=== PATIENT | female | born 1990 | race Caucasian/White ===

== ENCOUNTER 2022-07-03 13:21 | Inpatient (IN) | payer MEDICAID ==
[~2022-07-03] VITALS: Ht 157.5 cm; Wt 83.0 kg
[2022-07-03] MEDS ORDERED: LR 500 ML IV ONE (16:15)
[2022-07-03] MEDS ORDERED: OXYTOCIN/0.9 % SODIUM CHLORIDE 1,000 ML IV SCH (16:15)
[2022-07-03] MEDS ORDERED: DINOPROSTONE 10 MG SUPP VG ONE (16:15)
[2022-07-03] MEDS ORDERED: TERBUTALINE SULFATE 1 MG/ML VIAL SUBCUT ONE (16:15)
[2022-07-03 18:40] LABS: BASOPHILS % (AUTO) 0.4 % (0.0-2.0); EOSINOPHILS % (AUTO) 0.1 % (0.0-4.0); HEMATOCRIT 36.2 % (36-48); HEMOGLOBIN 12.9 g/dL (12.0-16.0); LYMPHOCYTES # (AUTO) 0.6 K/uL (1.0-5.5); LYMPHOCYTES % (AUTO) 6.5 % (20.5-51.5); MEAN CORPUSCULAR HEMOGLOBIN 31 pg (27-31); MEAN CORPUSCULAR HGB CONC 36 % (32-36); MEAN CORPUSCULAR VOLUME 88 fL (79.0-98.0); MONOCYTES # (AUTO) 0.6 K/uL (0.0-1.0); MONOCYTES % (AUTO) 6.4 % (1.7-9.3); NEUTROPHILS # (AUTO) 8.4 K/uL (1.8-7.7); NEUTROPHILS % (AUTO) 86.6 % (40.0-70.0); PLATELET COUNT (AUTO) 189 K/uL (130-430); RED BLOOD CELL COUNT(AUTO) 4.11 MIL/uL (4.2-6.2); RED CELL DISTRIBUTION WIDTH 13.7 % (9.0-15.0); WHITE BLOOD COUNT (AUTO) 9.7 K/uL (4.8-10.8)
[2022-07-03] MEDS: LR 1,000 ML IV SCH (21:11)
[2022-07-03 23:18] VITALS: BP_SYST 111
[2022-07-04] MEDS: LR 1,000 ML IV SCH ×3 (00:20→23:25)
[2022-07-04] MEDS ORDERED: NALBUPHINE HCL 10 MG/ML AMP IVP PRN (02:30)
[2022-07-04] MEDS ORDERED: NALOXONE HCL 0.4 MG/ML AMP (NARCAN) IVP PRN (02:45)
[2022-07-04] MEDS: MORPHINE SULFATE 10 MG/ML VIAL IVP PRN ×2 (02:48→06:46)
[2022-07-04] MEDS ORDERED: ROPIVACAINE HCL/PF 0.2% 200 ML ONE (10:49)
[2022-07-04] MEDS ORDERED: fentaNYL CITRATE/PF 100 MCG/2 ML AMP ONE (10:49)
[2022-07-04] MEDS ORDERED: ePHEDrine sulfate 50 MG/ML VIAL IVP PRN (11:30)
[2022-07-04] MEDS ORDERED: LR 500 ML IV ONE (11:30)
[2022-07-04] MEDS ORDERED: ACETAMINOPHEN 325 MG TABLET PO ONE (19:30)
[2022-07-04] MEDS ORDERED: CLINDAMYCIN 900 MG in D5W 100 ML IV ONE (19:30)
[2022-07-04] MEDS ORDERED: GENTAMICIN 80 mg/50 mL NS 50 ML IV ONE (19:30)
[2022-07-04] MEDS ORDERED: ACETAMINOPHEN 500 MG TABLET ONE (19:37)
[2022-07-04] MEDS ORDERED: AMPICILLIN SODIUM 2 GM VIAL ONE (19:39)
[2022-07-04] MEDS ORDERED: AMPICILLIN SODIUM 2 GM in NS 100 ML IV ONE (20:00)
[2022-07-04] MEDS ORDERED: NALOXONE HCL 0.4 MG/ML AMP (NARCAN) ONE (21:29)
[2022-07-04] MEDS ORDERED: LIGHT MINERAL OIL 10 ML VIAL MC ONE (21:29)
[2022-07-04] MEDS ORDERED: LIDOCAINE PF 1% 30ML(POUR BTL) INJ ONE (21:29)
[2022-07-05] MEDS ORDERED: OXYTOCIN/0.9 % SODIUM CHLORIDE 1,000 ML IV ONE (04:30)
[2022-07-05] MEDS ORDERED: OXYTOCIN/0.9 % SODIUM CHLORIDE 1,000 ML IV SCH (04:30)
[2022-07-05] MEDS ORDERED: LANOLIN 7 GM OINT. TP PRN (04:30)
[2022-07-05] MEDS: IBUPROFEN 600 MG TABLET PO SCH ×4 (06:00→23:51)
[2022-07-05] MEDS: DOCUSATE SODIUM 100 MG CAPSULE PO SCH (09:28)
[2022-07-06] MEDS: IBUPROFEN 600 MG TABLET PO SCH ×3 (06:14→18:12)
[2022-07-06 08:20] LABS: BASOPHILS # (AUTO) 0.1 K/uL (0.0-0.2); BASOPHILS % (AUTO) 0.6 % (0.0-2.0); EOSINOPHILS # (AUTO) 0.1 K/uL (0.0-0.4); EOSINOPHILS % (AUTO) 1.1 % (0.0-4.0); HEMATOCRIT 29.9 % (36-48); HEMOGLOBIN 10.4 g/dL (12.0-16.0); LYMPHOCYTES # (AUTO) 2.6 K/uL (1.0-5.5); LYMPHOCYTES % (AUTO) 20.4 % (20.5-51.5); MEAN CORPUSCULAR HEMOGLOBIN 31 pg (27-31); MEAN CORPUSCULAR HGB CONC 35 % (32-36); MEAN CORPUSCULAR VOLUME 90 fL (79.0-98.0); MONOCYTES # (AUTO) 0.7 K/uL (0.0-1.0); MONOCYTES % (AUTO) 5.8 % (1.7-9.3); NEUTROPHILS # (AUTO) 9.3 K/uL (1.8-7.7); NEUTROPHILS % (AUTO) 72.1 % (40.0-70.0); PLATELET COUNT (AUTO) 168 K/uL (130-430); RED BLOOD CELL COUNT(AUTO) 3.33 MIL/uL (4.2-6.2); RED CELL DISTRIBUTION WIDTH 14.2 % (9.0-15.0); WHITE BLOOD COUNT (AUTO) 12.9 K/uL (4.8-10.8)
[2022-07-06] MEDS: DOCUSATE SODIUM 100 MG CAPSULE PO SCH (18:12)
[2022-07-07 21:06] LABS: FTA-Ab (T PALLIDUM) Non Reactive (Non Reactive)
== END 2022-07-06 20:39 | disposition home or self-care (01) | DRG 560 ==
LOC: SPU 13:21 → OBSVTOIN 13:21 → SPU 13:52
PROVIDERS: ADMIT Obstetrics & Gynecology; ATTEND Obstetrics & Gynecology
PROC: 10E0XZZ Delivery of Products of Conception, External Approach (ICD-10-PCS; principal; 2022-07-04)
PROC: 3E0R3BZ Introduction of Anesthetic Agent into Spinal Canal, Percutaneous Approach (ICD-10-PCS; 2022-07-04)
PROC: 00HU33Z Insertion of Infusion Device into Spinal Canal, Percutaneous Approach (ICD-10-PCS; 2022-07-04)
PROC: 30233S1 Transfusion of Nonautologous Globulin into Peripheral Vein, Percutaneous Approach (ICD-10-PCS; 2022-07-06)
DX: O48.0 Post-term pregnancy (principal); Z37.0 Single live birth; O41.1230 Chorioamnionitis, third trimester, not applicable or unspecified; D62 Acute posthemorrhagic anemia; Z20.822 Contact with and (suspected) exposure to COVID-19; Z3A.40 40 weeks gestation of pregnancy
CPT/HCPCS: 36415; 76815; 81002; 85025; 86592; 86780; 86886; 86900; 86901; 94760; J0290; J1580; J2001; J2270; J2310; J2590; J2790; J3010; J3490; J7060; J7120